=== PATIENT | male | born 1945 | race Caucasian/White ===

== ENCOUNTER → 2018-09-22 | Outpatient (CLI) | payer MEDICARE ==
--- NOTE | 2018-09-24 10:26 | REP ---
MRI LUMBAR SPINE WITHOUT CONTRAST: HISTORY: Low back pain. Left leg pain. TECHNIQUE: Sagittal and axial T1- and T2-weighted scans are acquired in the usual fashion with and without fat saturation. Sequences include spin echo, turbo spin echo, and STIR imaging sequences. MRI FINDINGS: There is a moderate levoconvex curve in the upper lumbar spine. Lumbar vertebral body heights are preserved. Alignment is otherwise normal. There is no evidence of spondylolysis or spondylolisthesis. Cortical and medullary bone signal intensity are normal except that there are mild reactive marrow changes on either side of the L4-5, and to a lesser extent L2-3 disc spaces. The tip of the conus medullaris is normal in position and appearance at T12-L1. No extra vertebral abnormality is appreciated. At T12-L1, there is a central disc bulging effacing the ventral margin of the thecal sac without caudae equina compression. At L1-L2, there is mild diffuse disc bulging. No central canal stenosis or neural foraminal narrowing is appreciated. At L2-L3, the disc is quite narrowed and there is posterior disc bulging and osteophytic ridging. This is most pronounced on the right and there is right-sided neural foraminal encroachment from disc bulging and spurring. There is some facet hypertrophy contributing to this as well. There is some compression of the right ventral lateral margin of the thecal sac at L2-3. No central canal stenosis. At L3-L4, there is diffuse disc bulging. Mild discogenic spurring is seen. There is mild bilateral neural foraminal narrowing L3-4. Facet hypertrophy is noted. Canal size is borderline at L3-4. At L4-L5, there is mild diffuse disc bulging. Borderline canal size is seen. Ligamentum flavum and facet hypertrophy is noted bilaterally. There is left-sided neural foraminal encroachment. This is due to some facet hypertrophy and a left foraminal disc protrusion. At L5-S1, there is mild central disc bulging. No neural foraminal encroachment or central canal stenosis is seen. There is mild facet hypertrophy. IMPRESSION: Scoliosis and degenerative spondylosis changes with multiple levels of neural foraminal encroachment as above. There is a left foraminal disc protrusion at L4-5. Electronically Signed by Ruddy Yan MD 09/24/2018 11:43 A
== END ==
LOC: M RAD 12:23
PROVIDERS: ATTEND Family Medicine
DX: M51.26 Other intervertebral disc displacement, lumbar region (principal); M51.25 Other intervertebral disc displacement, thoracolumbar region; M41.9 Scoliosis, unspecified

== ENCOUNTER 2022-11-23 20:40 | Emergency (ER) | payer MEDICARE ==
[~2022-11-23] VITALS: Ht 177.8 cm; Wt 88.7 kg
[2022-11-23 20:41] VITALS: BP 134/80; TEMP 98.6; O2SAT 95
[2022-11-23 22:16] LABS: HEMOGLOBIN 14.1 g/dl (13.5-17.5); MEAN CORPUSCULAR HEMOGLOBIN 31.5 pg (27.0-33.0); MEAN CORPUSCULAR HGB CONC 34.4 g/dl (32.0-36.5); MEAN CORPUSCULAR VOLUME 91.5 fl (80.0-96.0); PLATELET COUNT, AUTOMATED 218 10^3/uL (150-450); RED BLOOD COUNT 4.48 10^6/uL (4.30-6.10); WHITE BLOOD COUNT 5.8 10^3/uL (4.0-10.0)
[2022-11-23 22:28] LABS: CK-MB VALUE MASS 2.5 NG/ML (<3.6)
[2022-11-23 22:30] LABS: ALBUMIN 3.3 G/DL (3.2-5.2); ALKALINE PHOSPHATASE 68 U/L (46-116); ALT/SGPT 18 U/L (7.0-40); AST/SGOT 29 U/L (<34); BILIRUBIN,DIRECT 0.3 MG/DL (<0.4); BILIRUBIN,TOTAL 0.6 MG/DL (0.3-1.2); BLOOD UREA NITROGEN 30 MG/DL (9-23); CALCIUM LEVEL 8.6 MG/DL (8.3-10.6); CARBON DIOXIDE LEVEL 26 MMOL/L (20-31); CHLORIDE LEVEL 100 MMOL/L (98-107); CREATININE FOR GFR 1.17 MG/DL (0.70-1.30); GLOMERULAR FILTRATION RATE > 60.0 (>42); GLUCOSE, FASTING 138 MG/DL (74-106); POTASSIUM SERUM 3.2 MMOL/L (3.5-5.1); SODIUM LEVEL 136 MMOL/L (136-145); TOTAL PROTEIN 6.6 G/DL (5.7-8.2)
[2022-11-23 22:30] LABS: ATYPICAL LYMPH 3 % (0-5); EOSINOPHILS 2 % (0-3); LYMPHOCYTES 22 % (16-44); METAMYELOCYTES 1 % (0-0); MONOCYTES 8 % (0-5); NEUTROPHILS 59 % (28-66); PLATELET ESTIMATE NORMAL (NORMAL)
[2022-11-23 22:32] LABS: THYROID STIMULATING HORMONE 0.569 uIU/ML (0.55-4.78); THYROXINE (T4) 8.3 UG/DL (4.5-10.9)
[2022-11-23 22:37] LABS: CPK CREATINE PHOSPHOKINASE 296 U/L (46-171); MB/CK RELATIVE INDEX 0.84 (< OR =4)
[2022-11-24 00:11] LABS: VENOUS BASE EXCESS 2.3 (-2.0-2.0); VENOUS HCO3 28.2 MMOL/L (23.0-27.0); VENOUS O2 SATURATION 61.6 % (60.0-80.0); VENOUS PARTIAL PRESSURE CO2 48.4 mmHg (38.0-50.0); VENOUS PARTIAL PRESSURE O2 32.2 mmHg (30.0-50.0); VENOUS PH 7.383 UNITS (7.330-7.430); VENOUS STANDARD HCO3 25.5 MMOL/L; VENOUS TOTAL CO2 29.7 MMOL/L (24.0-28.0)
== END 2022-11-24 01:30 | disposition left against medical advice (07) ==
LOC: M ED 20:40
DX: Z53.21 Procedure and treatment not carried out due to patient leaving prior to being seen by health care provider (principal)